=== PATIENT | male | born 1975 ===

== ENCOUNTER 2022-04-24 09:55 | Day surgery (SDC) | payer BC ==
[~2022-04-24] VITALS: Ht 167.6 cm; Wt 112.7 kg
[~2022-04-24 09:55] MED LIST: NORCO 325 MG-7.1 TAB PO
[2022-04-24] MEDS ORDERED: ZOCOR 10MG10 MG PO (12:08)
[2022-04-24] MEDS ORDERED: ZYLOPRIM 300MG300 MG PO (12:09)
[2022-04-24] MEDS ORDERED: ZYRTEC 10MG10 MG PO (12:09)
[2022-04-24 12:12] VITALS: BP 116/86; PULSE 84; TEMP 97.4
[2022-04-24 13:55] VITALS: BP 110/80; PULSE 75; TEMP 97.4
[2022-04-24 14:10] VITALS: BP 110/87; PULSE 79
[2022-04-24 14:25] VITALS: BP 112/78; PULSE 72
== END 2022-04-24 14:35 | disposition home or self-care (01) ==
LOC: SDCO 09:55
DX: Z12.11 Encounter for screening for malignant neoplasm of colon (principal); F17.210 Nicotine dependence, cigarettes, uncomplicated
CPT/HCPCS: J2704; J7030